=== PATIENT | female | born 1990 | race Caucasian/White ===

== ENCOUNTER 2019-04-17 07:10 | Emergency (ER) | payer OTHER ==
[2019-04-17 07:23] VITALS: BP 110/66
--- NOTE | 2019-04-17 07:37 | UC ---
Respiratory Complaint HPI - HPI Summary HPI Summary: 29 year old female presents with a c/o sinus pain and pressure over the past month. Sx progressed over the past few days with low grade fever, bilateral ear pressure, sore throat and generalized malaise. Hx of sinus surgery ~10 years ago. - History of Current Complaint Chief Complaint: UCGeneralIllness Stated Complaint: SINUS COMPLAINT Time Seen by Provider: 04/17/19 07:28 Hx Obtained From: Patient Hx Last Menstrual Period: IUD Onset/Duration: Gradual Onset Pain Intensity: 5 Associated Signs And Symptoms: Positive: Fever, Nasal Congestion, Sinus Discomfort. Negative: Dyspnea, Pleuritic Chest Pain, Wheezing, Hemoptysis, Dizziness - Allergies/Home Medications Allergies/Adverse Reactions: Allergies Allergy/AdvReac Type Severity Reaction Status Date / Time Cephalosporins Allergy Unknown Verified 04/17/19 07:24 Reaction Details Penicillins Allergy Unknown Verified 04/17/19 07:24 Reaction Details Sulfa (Sulfonamide Allergy Unknown Verified 04/17/19 07:24 Antibiotics) Reaction Details Home Medications: Home Medications Doxylamine/Phenylep/Dm/Aspirin [[place] Day-Night Tab Eff] 1 tab PO ONCE [History Confirmed 04/17/19] PMH/Surg Hx/FS Hx/Imm Hx Previously Healthy: Yes - Surgical History Surgical History: Yes - sinus surgery ~10 years ago, believes it was for a deviated septum. - Social History Alcohol Use: None Substance Use Type: None Smoking Status (MU): Never Smoked Tobacco Review of Systems All Other Systems Reviewed And Are Negative: Yes Constitutional: Positive: Fever, Fatigue Skin: Negative: Rash, Bruising Eyes: Negative: Blurred Vision, Drainage, Eye Redness ENT: Positive: Sore Throat, Nasal Discharge, Sinus Congestion, Sinus Pain/ Tenderness. Negative: Epistaxis Respiratory: Negative: Shortness Of Breath, Cough Cardiovascular: Negative: Palpitations, Chest Pain Gastrointestinal: Negative: Abdominal Pain, Vomiting, Diarrhea, Nausea Genitourinary: Negative: Dysuria, Hematuria, Frequency, Urgency Motor: Positive: Negative Neurovascular: Positive: Negative Musculoskeletal: Positive: Negative Neurological: Negative: Negative Psychological: Positive: Negative Is Patient Immunocompromised?: No Physical Exam Triage Information Reviewed: Yes Appearance: Well-Appearing Vital Signs: Initial Vital Signs Temp 99.2 F 04/17/19 07:19 Pulse 86 04/17/19 07:19 Resp 16 04/17/19 07:19 BP 110/66 04/17/19 07:19 Pulse Ox 100 04/17/19 07:19 Vital Signs Reviewed: Yes Eyes: Positive: Conjunctiva Clear ENT: Positive: Pharyngeal erythema - right tonsil stone, Nasal congestion, TMs normal, Sinus tenderness - maxillary, Uvula midline. Negative: Tonsillar swelling, Tonsillar exudate Neck: Positive: Supple, Nontender, Enlarged Nodes @ - mild, bilateral anterior cervical adenopathy Respiratory: Positive: Lungs clear, Normal breath sounds, No respiratory distress. Negative: Crackles, Rhonchi, Wheezing Cardiovascular: Positive: RRR, No Murmur, Brisk Capillary Refill Abdomen Description: Positive: Nontender, Soft Musculoskeletal Exam: Normal Neurological Exam: Normal Psychological Exam: Normal Skin Exam: Normal Respiratory Course/Dx - Course Course Of Treatment: Offered Rapid strep, declines. Agreed to monospot as she has been fatigued with her sx. - Differential Dx/Diagnosis Differential Diagnosis/HQI/PQRI: Other - Pharyngitis, Mononucleosis Provider Diagnosis: Sinusitis Discharge ED - Sign-Out/Discharge Documenting (check all that apply): Patient Departure All imaging exams completed and their final reports reviewed: No Studies - Discharge Plan Condition: Stable Disposition: HOME Prescriptions: DOXYcycline CAP(*) [DOXYcycline 100MG CAP(*)] 100 mg PO BID 10 Days #20 cap Patient Education Materials: Sinusitis (ED) Referrals: No Primary Care Phys,NOPCP [Primary Care Provider] - Additional Instructions: Take all the antibiotics as prescribed. Follow-up with your primary care physician if your symptoms persist or worsen. - Billing Disposition and Condition Condition: STABLE Disposition: Home
== END 2019-04-17 07:45 | disposition home or self-care (01) ==
LOC: UCCORT 07:10
DX: J32.9 Chronic sinusitis, unspecified (principal); R50.9 Fever, unspecified; Z88.1 Allergy status to other antibiotic agents; Z88.0 Allergy status to penicillin; Z88.2 Allergy status to sulfonamides
CPT/HCPCS: 36415; 86308; 99202; G0463